=== PATIENT | female | born 1985 | race Caucasian/White ===

== ENCOUNTER 2016-04-21 16:43 | Emergency (ER) | payer MEDICAID, OTHER ==
[~2016-04-21] VITALS: Ht 170.2 cm; Wt 75.3 kg
[~2016-04-21 16:43] MED LIST: AC325T PO; ACHYD1T PO; CPR500T PO; CRS350T PO; CYCL10TA9 PO; DCS100C PO; HYDR-3714 PO; IBP800T PO; IBUP800T26 PO; LANS30CA8 PO; MTF500T PO; MTP25TSR PO; NAPR-243 PO; NF-TRA/ACE PO; NITR-33 PO; NITR-65 PO; ONDA-42 PO; ONDA-42 SL; ONDAN4ODT PO; OXYC-12 PO; OXYC1TAB12 PO; PANT20TA PO; PHEN-452 PO; PHEN200T16 PO; PREN1TAB39; PRENATAL GUMMIES PO; PRM25T PO; TRM50T PO
--- OUTSIDE RECORDS SUMMARY | 2016-04-21 16:49 | XMS REPORT | Continuity of Care Document ---
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 Name Role Phone DYAN CARDOSO MD PCP Insurance Providers Payer Name Policy Number Subscriber Name Relationship Dakot[facility] [employer] [facility] [id number] Isela Boyer I 18 Self / Same As Patient Advance Directives Directive Response Recorded Date/Time Advance Directives No 09/10/14 11:38am Health Care Power of Neurology Director No 09/10/14 11:38am Organ Donor Yes 09/10/14 11:38am Resuscitation Status Full Code 09/10/14 11:38am Problems Medical Problems Problem Onset Date Status Urinary tract infection Unknown Active Medications Medication Dose Route Sig Days/Qty Instructions Order Date Discontinued Date Status Vits W-Ca,Fe,Fa(<1MG) 07/13/08 07/13/09 Discontinued Nitrofurantoin Macrocrystals 1 Each PO TWICE A DAY 7 Days 07/14/1019/02 Discontinued Promethazine HCl 1 Tab PO FOUR TIMES DAILY PRN 14 Qty 07/14/10 Discontinued Vits W-Ca,Fe,Fa(<1MG) 08/21/10 03/21/11 Discontinued Acetaminophen/Hydrocodone Bitart 1 - 2 Tab PO Q3HRS NEEDED 28 Qty 03/21/11 Discontinued Ibuprofen 800 Mg PO Q6HRS NEEDED 01/09/11 12/18/11 Discontinued Acetaminophen 650 Mg PO NEEDED 03/21/11 12/18/11 Discontinued Carisoprodol 1 Tab PO THREE TIMES A DAY 30 Qty 03/21/11 12/18/11 Discontinued Tramadol/Acetaminophen 1 Ea PO NEEDED 20 Qty 03/21/11 12/18/11 Discontinued Promethazine HCl 1 Tab PO FOUR TIMES DAILY PRN 14 Qty 12/18/11 Discontinued Metoprolol Succinate 1 Each PO BEDTIME PRN 06/03/12 08/14/13 Discontinued Tramadol HCl 50 Mg PO EVERY 4HRS 20 Qty 06/03/12 08/14/13 Discontinued Ciprofloxacin 1 Tab PO TWICE A DAY 7 Days 06/03/12 08/14/13 Discontinued Phenazopyridine Hcl 200 Mg PO THREE TIMES A DAY 6 Qty 06/03/12 Discontinued Phentermine Hcl 30 Mg PO 08/14/13 12/27/13 Discontinued Cyclobenzaprine HCl (Flexeril) 1 Each PO EVERY 8HRS PRN SPASMS 10 Qty 08/14/13 09/22/13 Discontinued Hydrocodone Bit/Acetaminophen 1 Tab PO EVERY 4HRS PRN PAIN 10 Qty 08/1409/22/13 Discontinued Nitrofurantoin Macrocrystals 1 Each PO TWICE A DAY 20 Qty FOR INFECTION 08/14/13 09/22/13 Discontinued Oxycodone Hcl/Acetaminophen 1 Each PO Q4-6H PRN PRN PAIN 20 Qty 12/27/13 Discontinued Ondansetron Hcl 4 Mg SL EVERY 4HRS PRN 10 Qty 09/22/13 02/06/14 Discontinued Ibuprofen (Motrin) 800 Mg PO q8h PRN PAIN 20 Qty 09/22/13 12/27/13 Discontinued [ Gummies] 1 Ea PO BEDTIME 12/27/13 08/01/14 Discontinued Nitrofurantoin Macrocrystals 1 Each PO TWICE A DAY 20 Qty 12/27/13 Discontinued Lansoprazole 30 Mg PO DAILY 02/06/14 02/15/14 Discontinued Oxycodone Hcl/Acetaminophen 1-2 Each PO Q4-6H PRN PRN PAIN 30 Qty 02/1208/01/14 Discontinued Pantoprazole Sodium 40 Mg PO DAILY 90 Qty 02/15/14 09/08/14 Discontinued Ondansetron Hcl 4 Mg PO EVERY 4HRS PRN 60 Qty 02/15/14 08/01/14 Discontinued [ Gummies] 2 Ea PO DAILY 08/01/14 09/08/14 Discontinued Metformin HCl (Glucophage) 1 Each PO TWICE A DAY WITH MEALS 08/01/14 08/03/14 Discontinued Docusate Sodium 100 Mg PO TWICE A DAY 60 Qty 08/03/14 09/08/14 Discontinued Ibuprofen 800 Mg PO EVERY 6 HOURS 60 Qty 08/03/14 09/08/14 Discontinued Oxycodone Hcl/Acetaminophen 1-2 Tab PO EVERY 4HRS PRN PAIN 60 Qty 08/0309/08/14 Discontinued Docusate Sodium 100 Mg PO TWICE A DAY 30 Qty 09/11/14 Active Ibuprofen 800 Mg PO GIVE EVERY 6 HR ON SCHEDULE 60 Qty 09/11/14 Active Oxycodone Hcl/Acetaminophen 1-2 Tab PO EVERY 4HRS PRN PAIN 60 Qty 09/11 Active Social History Social History Problem Response Recorded Date/Time Alcohol Use Denies Use 09/10/2014 11:38am Recreational Drug Use No 09/10/2014 11:38am Recent Foreign Travel No 12/27/2013 3:56pm Recent Infectious Disease Exposure No 12/27/2013 3:56pm Sexually Transmitted Disease Y Chlamydia-Treated 09/10/2014 11:38am HIV/AIDS No 09/10/2014 11:38am Smoking Status Former Smoker 09/10/2014 11:34am Do you dip or chew tobacco? No 09/10/2014 11:34am Query Response Start Date Stop Date Smoking Status Former Smoker 03/03/2012 Hospital Discharge Instructions No hospital discharge instructions. Plan of Care No plan of care. Functional Status No functional status results. Allergies, Adverse Reactions, Alerts Allergen Type Severity Reaction Status Last Updated Codeine Allergy Unknown NAUSEA Active 09/22/13 hydrocodone ([id number]) Adverse Reaction Intermediate vomiting Active Immunizations Name Given Type Tetanus Booster (TDap) Less than 5yrs Historical Vital Signs Acute Vital Signs Vital Response Date/Time Temperature (Fahrenheit) 98.4 degrees F (97.6 - 99.5) Temperature (Calculated Celsius) 36.87105 degrees C (36.4 - 37.5) Temperature Source Temporal Pulse Rate (adult) 70 bpm (60 - 90) Respiratory Rate 17 bpm (12 - 24) O2 Sat by Pulse Oximetry 96 % (88 - 100) Blood Pressure 97/50 mm Hg Pain Pain Intensity 0 Height (Feet) 5 feet Height (Inches) 7.00 inches Height (Calculated Centimeters) 170.582537 cm Weight (Pounds) 222 pounds Weight (Ounces) 0.0 oz Weight (Calculated Grams) 905488.507 gm Weight (Calculated Kilograms) 100.445284 kilograms Calculated BMI 36.94 Results Laboratory Results Test Name Result Units Flags Reference Collection Date/Time Result Date/ Time Comments White Blood Count 6.9 10^3/uL 4.3-11.0 09/08/2014 12:00pm 09/08/2014 12 :29pm Red Blood Count 4.67 10^6/uL 4.35-5.85 09/08/2014 12:00pm 09/08/2014 12 :29pm Hemoglobin 11.1 G/DL L 11.5-16.0 09/08/2014 12:00pm 09/08/2014 12:29pm Hematocrit 35 % 35-52 09/08/2014 12:00pm 09/08/2014 12:29pm Mean Corpuscular Volume 75 FL L 80-99 09/08/2014 12:00pm 09/08/2014 12: 29pm Mean Corpuscular Hemoglobin 24 PG L 25-34 09/08/2014 12:00pm 09/08/2014 12:29pm Mean Corpuscular Hemoglobin Concent 32 G/DL 32-36 09/08/2014 12:00pm 12:29pm Red Cell Distribution Width 17.2 % H 10.0-14.5 09/08/2014 12:00pm 2014 12:29pm Platelet Count 315 10^3/uL 130-400 09/08/2014 12:00pm 09/08/2014 12: 29pm Mean Platelet Volume 10.5 FL H 7.4-10.4 09/08/2014 12:00pm 09/08/2014 12: 29pm Neutrophils (%) (Auto) 65 % 42-75 09/08/2014 12:00pm 09/08/2014 12: 29pm Lymphocytes (%) (Auto) 26 % 12-44 09/08/2014 12:00pm 09/08/2014 12: 29pm Monocytes (%) (Auto) 5 % 0-12 09/08/2014 12:00pm 09/08/2014 12:29pm Eosinophils (%) (Auto) 4 % 0-10 09/08/2014 12:00pm 09/08/2014 12:29pm Basophils (%) (Auto) 0 % 0-10 09/08/2014 12:00pm 09/08/2014 12:29pm Neutrophils # (Auto) 4.5 X 10^3 1.8-7.8 09/08/2014 12:00pm 09/08/2014 12:29pm Lymphocytes # (Auto) 1.8 X 10^3 1.0-4.0 09/08/2014 12:00pm 09/08/2014 12:29pm Monocytes # (Auto) 0.4 X 10^3 0.0-1.0 09/08/2014 12:00pm 09/08/2014 12: 29pm Eosinophils # (Auto) 0.3 10^3/uL 0.0-0.3 09/08/2014 12:00pm 09/08/2014 12:29pm Basophils # (Auto) 0.0 10^3/uL 0.0-0.1 09/08/2014 12:00pm 09/08/2014 12 :29pm Procedures Procedure Status Date Provider(s) Robot-assisted laparoscopic hysterectomy completed 09/10/14 DYAN CARDOSO MD Encounters Encounter Location Date/Time Departed [facility] 09/10/14 10:50am Registered Clinic [facility] 09/08/14 11:48am
[2016-04-21 17:13] LABS: BASOPHILS % (AUTO) 0 % (0-10); EOSINOPHILS # (AUTO) 0.2 10^3/uL (0.0-0.3); EOSINOPHILS % (AUTO) 2 % (0-10); LYMPHOCYTES % (AUTO) 24 % (12-44); MEAN CORPUSCULAR HEMOGLOBIN 29 PG (25-34); MEAN CORPUSCULAR HGB CONC 35 G/DL (32-36); MEAN CORPUSCULAR VOLUME 85 FL (80-99); MEAN PLATELET VOLUME 10.6 FL (7.4-10.4); MONOCYTES # (AUTO) 0.4 X 10^3 (0.0-1.0); MONOCYTES % (AUTO) 4 % (0-12); NEUTROPHILS # (AUTO) 5.6 X 10^3 (1.8-7.8); NEUTROPHILS % (AUTO) 69 % (42-75); PLATELET COUNT 275 10^3/uL (130-400); RED BLOOD COUNT 5.48 10^6/uL (4.35-5.85); RED CELL DISTRIBUTION WIDTH 13.8 % (10.0-14.5); WHITE BLOOD COUNT 8.1 10^3/uL (4.3-11.0)
--- NOTE | 2016-04-21 17:27 | Diagnostic Imaging Report ---
INDICATION: Chest pain. COMPARISON: 05/17/2010. FINDINGS: Single frontal view of the chest demonstrates normal heart size and pulmonary vascularity. The lungs are well aerated and clear. No large pleural effusion or pneumothorax is seen. The visualized osseous structures show no acute abnormalities. IMPRESSION: 1. No acute cardiopulmonary process. Dictated by: Dictated on workstation # [id number]
[2016-04-21 17:34] LABS: ALANINE AMINOTRANSFERASE 26 U/L (0-55); ALBUMIN 4.8 G/DL (3.2-4.5); ANION GAP 9 MMOL/L (5-14); ASPARTATE AMINO TRANSFERASE 21 U/L (5-34); BILIRUBIN,TOTAL 0.5 MG/DL (0.1-1.0); BLOOD UREA NITROGEN 7 MG/DL (7-18); BUN/CREATININE RATIO 8; CALCIUM 9.3 MG/DL (8.5-10.1); CARBON DIOXIDE 24 MMOL/L (21-32); CHLORIDE 104 MMOL/L (98-107); CREATININE SERUM 0.87 MG/DL (0.60-1.30); GFR ESTIMATED > 60; GLUCOSE 78 MG/DL (70-105); POTASSIUM 3.7 MMOL/L (3.6-5.0); SODIUM 137 MMOL/L (135-145); TOTAL PROTEIN 7.6 G/DL (6.4-8.2)
--- NOTE | 2016-04-21 17:38 | ED Chest Pain ---
General Chief Complaint: Chest Pain Stated Complaint: CHEST PAIN Nursing Triage Note: PT STATES HX OF A-FIB, CC TODAY OF CHEST PAIN, HAS BEEN HAVING CHEST PAIN FOR THE PAST 2 WEEKS, 4 EPISODES TODAY. PT'S SKIN IS FLUSHED FROM SUN TANNING. Nursing Sepsis Screen: No Definite Risk Source: patient Exam Limitations: no limitations History of Present Illness Time seen by provider: 17:38 Timing/Duration: other (2 weeks) Severity/Quality: moderate, sharp, other Location: substernal, epigastric Radiation: no radiation Activities at Onset: none Prior CP/Workup: other Associated Symptoms: denies symptoms Allergies and Home Medications Allergies Coded Allergies: codeine (Unverified Allergy, Unknown, NAUSEA, 09/22/13) hydrocodone (Unverified Adverse Reaction, Intermediate, vomiting, 09/22/13) Review of Systems Constitutional: see HPI EENTM: No Symptoms Reported Respiratory: No Symptoms Reported Cardiovascular: See HPI Chest Pain Irregular Heart Rate Palpitations Gastrointestinal: No Symptoms Reported Genitourinary: No Symptoms Reported Musculoskeletal: no symptoms reported Skin: other (sunburn) Psychiatric/Neurological: No Symptoms Reported Endocrine: No Symptoms Reported Hematologic/Lymphatic: No Symptoms Reported Past [id number]-Tiddvb-Wunoav Hx Patient Social History Alcohol Use: Occasionally Uses Recreational Drug Use: No Smoking Status: Current Everyday Smoker Type Used: Cigarettes Former Smoker/When Quit: Mar 03, 2012 Recent Foreign Travel: No Contact w/Someone Who Travel: No Recent Infectious Disease Expo: No Recent Hopitalizations: No (2006 CHILDBIRTH) Physical Abuse Screen: No Sexual Abuse: No Immunizations Up To Date Tetanus Booster (TDap): Less than 5yrs Seasonal Allergies Seasonal Allergies: No Surgeries HX Surgeries: Yes Surgeries: Gallbladder, Hysterectomy, Tonsillectomy Respiratory Hx Respiratory Disorders: No Cardiovascular Hx Cardiac Disorders: Yes Cardiac Disorders: Atrial Fibrillation Neurological Hx Neurological Disorders: No Reproductive System : No Hx Reproductive Disorders: Yes (DOTTIE III) Sexually Transmitted Disease: Yes (Chlamydia-Treated) HIV/AIDS: No 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 Genitourinary Hx Genitourinary Disorders: No Gastrointestinal Hx Gastrointestinal Disorders: No Gastrointestinal Disorders: Gall Bladder Disease Musculoskeletal Hx Musculoskeletal Disorders: No Endocrine Hx Endocrine Disorders: No HEENT HX ENT Disorders: No Loss of Vision: Denies Hearing Impairment: Denies Cancer Hx Cancer: No Psychosocial Hx Psychiatric Problems: No Integumentary HX Skin/Integumentary Disorder: No Blood Transfusions Hx Blood Disorders: No Adverse Reaction to a Blood Tr: No Family Medical History Significant Family History: No Pertinent Family Hx Family Medial History: Cardiovascular disease 19 FATHER Diabetes mellitus Grandparents (Maternal Grandmother) Fibrocystic disease of breast Grandparents (Maternal Grandmother) Hypertension Grandparents (Maternal Grandfather) Neoplasm Grandparents (Maternal Grandmother) Physical Exam Vital Signs Vital Sign - Last 12Hours 04/21/16 16:49 Temp 100.6 Pulse 69 Resp 20 B/P 140/103 Pulse Ox 100 O2 Delivery Room Air Capillary Refill : Less Than 3 Seconds General Appearance: Anxious HEENT: Normal ENT Inspection Neck: Full Range of Motion Normal Inspection Non Tender Respiratory: Chest Non Tender Lungs Clear Normal Breath Sounds No Accessory Muscle Use No Respiratory Distress Cardiovascular: Regular Rate, Rhythm No Edema No Gallop No JVD No Murmur Normal Peripheral Pulses Gastrointestinal: Normal Bowel Sounds No Organomegaly No Pulsatile Mass Non Tender Genital/Rectal: Normal Rectal Tone Extremity: Normal Capillary Refill Neurologic/Psychiatric: Alert Oriented x3 No Motor/Sensory Deficits Normal Mood/Affect Skin: Normal Color Warm/Dry Lymphatic: No Adenopathy Progress/Results/Core Measures Results/Orders Lab Results Laboratory Tests Test 04/21/16 17:00 Range/Units Alanine Aminotransferase (ALT/SGPT) 26 0-55 U/L Albumin 4.8 H 3.2-4.5 G/DL Alkaline Phosphatase 64 40-136 U/L Anion Gap 9 5-14 MMOL/L Aspartate Amino Transf (AST/SGOT) 21 5-34 U/L BUN/Creatinine Ratio 8 Basophils # (Auto) 0.0 0.0-0.1 10^3/uL Basophils (%) (Auto) 0 0-10 % Blood Urea Nitrogen 7 7-18 MG/DL Calcium Level 9.3 8.5-10.1 MG/DL Carbon Dioxide Level 24 21-32 MMOL/L Chloride Level 104 98-107 MMOL/L Creatinine 0.87 0.60-1.30 MG/DL Eosinophils # (Auto) 0.2 0.0-0.3 10^3/uL Eosinophils (%) (Auto) 2 0-10 % Estimat Glomerular Filtration Rate > 60 Glucose Level 78 70-105 MG/DL Hematocrit 47 35-52 % Hemoglobin 16.1 H 11.5-16.0 G/DL Lymphocytes # (Auto) 2.0 1.0-4.0 X 10^3 Lymphocytes (%) (Auto) 24 12-44 % Mean Corpuscular Hemoglobin 29 25-34 PG Mean Corpuscular Hemoglobin Concent 35 32-36 G/DL Mean Corpuscular Volume 85 80-99 FL Mean Platelet Volume 10.6 H 7.4-10.4 FL Monocytes # (Auto) 0.4 0.0-1.0 X 10^3 Monocytes (%) (Auto) 4 0-12 % Neutrophils # (Auto) 5.6 1.8-7.8 X 10^3 Neutrophils (%) (Auto) 69 42-75 % Platelet Count 275 130-400 10^3/uL Potassium Level 3.7 3.6-5.0 MMOL/L Red Blood Count 5.48 4.35-5.85 10^6/uL Red Cell Distribution Width 13.8 10.0-14.5 % Sodium Level 137 135-145 MMOL/L Total Bilirubin 0.5 0.1-1.0 MG/DL Total Protein 7.6 6.4-8.2 G/DL Troponin I < 0.30 <0.30 NG/ML White Blood Count 8.1 4.3-11.0 10^3/uL My Orders Orders-ABELINO YOON MD Ekg Tracing (04/21/16 17:04) Chest 1 View, Ap/Pa Only (04/21/16 17:04) Cbc With Automated Diff (04/21/16 17:04) Comprehensive Metabolic Panel (04/21/16 17:04) Troponin I (04/21/16 17:04) Vital Signs/I&O Vital Sign - Last 12Hours 04/21/16 04/21/16 16:49 17:00 Temp 100.6 Pulse 69 Resp 20 B/P 140/103 Pulse Ox 100 O2 Delivery Room Air Room Air Blood Pressure Mean: 115 Departure Communication Progress Notes The electrocardiogram is normal. A previous cardiogram from 2013 showed a ventricular bigeminy. Troponin was negative Impression Impression: Primary Impression: chest pain not ischemic Disposition: HOME, SELF-CARE Condition: Stable/Unchanged Departure-Patient Inst. Decision time for Depature: 17:55 Referrals: DYAN CARDOSO MD (PCP/Family) Primary Care Physician Patient Instructions: Chest Pain That Is Not Caused by the Heart (DC) Add. Discharge Instructions: All discharge instructions reviewed with patient and/or family. Voiced understanding. Make appointment to revisit cardiology for further advice ABELINO YOON MD Apr 21, 2016 17:38
[2016-04-21 17:40] LABS: TROPONIN I < 0.30 NG/ML (<0.30)
[2016-04-21 18:13] VITALS: BP 118/85
== END 2016-04-21 18:13 | disposition home or self-care (01) ==
LOC: EDUNIT# 16:43 → ER 16:45
DX: R07.89 Other chest pain (principal); F17.210 Nicotine dependence, cigarettes, uncomplicated
CPT/HCPCS: 36415; 71010; 80053; 84484; 85025; 93005

== ENCOUNTER 2017-07-04 20:57 | Emergency (ER) | payer MEDICAID, OTHER ==
[~2017-07-04] VITALS: Ht 172.7 cm; Wt 74.8 kg
[2017-07-04] MEDS ORDERED: KETOROLAC 30 MG/ML VIAL IM ONE (21:30)
--- NOTE | 2017-07-04 21:30 | ED Lower Extremity ---
General Chief Complaint: Back Problems Stated Complaint: BACK AND LEG PAIN Nursing Triage Note: PT TO ED 4 W/ S.O. 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 PT REPORTS WAS RUNNING UPON ONSET. REPORTS PAIN RADIATES DOWN BOTH LEGS, UNABLE TO FIND POSITION OF COMFORT Nursing Sepsis Screen: No Definite Risk Source: patient Exam Limitations: no limitations History of Present Illness Date Seen by Provider: Jul 04, 2017 Time Seen by Provider: 21:12 Initial Comments Patient resists ER by private conveyance with her significant other a chief complaint she was at [place] softball game [place] [employer] just prior to arrival when she took off spreading from [employer] [place] and started experiencing exquisite pain in the anterior thighs. She says she's never had any previous injury she has no history of trauma to her thighs. No history of surgery. She did not fall. She is not on any medications or control. She had a history of a gallbladder, hysterectomy, tonsillectomy. She has not taken anything for it because she came straight here. She is not having any nausea, fevers, chills. Allergies and Home Medications Allergies Coded Allergies: codeine (Unverified Allergy, Unknown, NAUSEA, 09/22/13) hydrocodone (Unverified Adverse Reaction, Intermediate, vomiting, 09/22/13) Patient Home Medication List Home Medication List Reviewed: Yes Constitutional: No chills, No fever, No malaise EENTM: No ear discharge, No ear pain Respiratory: No cough, No short of breath Cardiovascular: No chest pain, No syncope Gastrointestinal: No abdominal pain, No constipation, No nausea, No vomiting Genitourinary: No discharge, No dysuria : No Control/STD Prophylaxis: Other (hysterectomy) Musculoskeletal: see HPI, No back pain, No joint pain Past Jxuqfxo-Ubsdyb-Pbjgny Hx Patient Social History Alcohol Use: Denies Use Number of Drinks Today: AA Alcohol Beverage of Choice: Beer Recreational Drug Use: No Smoking Status: Current Everyday Smoker Type Used: Cigarettes Recent Foreign Travel: No Contact w/Someone Who Travel: No Recent Infectious Disease Expo: No Recent Hopitalizations: No (2005 CHILDBIRTH) Physical Abuse: No Sexual Abuse: No Mistreated: No Fear: No Immunizations Up To Date Tetanus Booster (TDap): Less than 5yrs Seasonal Allergies Seasonal Allergies: No Past Medical History Surgeries: Yes (D AND C 2007) Gallbladder, Hysterectomy, Tonsillectomy Respiratory: No Cardiac: Yes Atrial Fibrillation Neurological: No Reproductive Disorders: Yes (DOTTIE III) Female Reproductive Disorders: 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 Sexually Transmitted Disease: Yes (Chlamydia-Treated) HIV/AIDS: No Gastrointestinal: No Gall Bladder Disease Musculoskeletal: No Endocrine: No Loss of Vision: Denies Hearing Impairment: Denies Cancer: No Psychosocial: No Nursing Suicide Risk Score: 0 Integumentary: No Blood Disorders: No Adverse Reaction/Blood Tranf: No Family Medical History Cardiovascular disease 19 FATHER Diabetes mellitus Grandparents (Maternal Grandmother) Fibrocystic disease of breast Grandparents (Maternal Grandmother) Hypertension Grandparents (Maternal Grandfather) Neoplasm Grandparents (Maternal Grandmother) No Pertinent Family Hx Physical Exam Vital Signs Vital Signs - First Documented 07/04/17 21:06 Temp 98.1 Pulse 102 Resp 24 B/P (MAP) 126/89 (101) Pulse Ox 99 O2 Delivery Room Air Capillary Refill : Less Than 3 Seconds General Appearance: WD/WN, mild distress HEENT: PERRL/EOMI, pharynx normal Neck: non-tender, normal inspection Cardiovascular: normal peripheral pulses, regular rate, rhythm Respiratory: chest non-tender, no respiratory distress, no accessory muscle use Gastrointestinal: normal bowel sounds, non tender, soft, no organomegaly Back: normal inspection, vertebral tenderness (lumbar with point tenderness over the right L5-S1 facet joint.) Hips: bilateral hip non-tender, bilateral hip normal inspection, bilateral hip normal range of motion, bilateral hip no evidence of injury Legs: bilateral leg normal inspection, bilateral leg normal range of motion, bilateral leg pain, bilateral leg soft tissue tenderness Knees: bilateral knee non-tender, bilateral knee normal inspection, bilateral knee normal range of motion, bilateral knee no evidence of injury Ankles: bilateral ankle non-tender, bilateral ankle normal inspection, bilateral ankle normal range of motion, bilateral ankle no evidence of injury Feet: bilateral foot non-tender, bilateral foot normal inspection, bilateral foot normal range of motion, bilateral foot no evidence of injury Neurologic/Tendon: normal sensation, normal motor functions, normal tendon functions, responds to pain, no evidence tendon injury Neurologic/Psychiatric: alert, normal mood/affect, oriented x 3 Skin: normal color, warm/dry Progress/Results/Core Measures Lab Results Laboratory Tests Test 07/04/17 22:02 07/04/17 22:27 Range/Units White Blood Count 9.5 4.3-11.0 10^3/uL Red Blood Count 4.85 4.35-5.85 10^6/uL Hemoglobin 14.5 11.5-16.0 G/DL Hematocrit 43 35-52 % Mean Corpuscular Volume 88 80-99 FL Mean Corpuscular Hemoglobin 30 25-34 PG Mean Corpuscular Hemoglobin Concent 34 32-36 G/DL Red Cell Distribution Width 12.7 10.0-14.5 % Platelet Count 252 130-400 10^3/uL Mean Platelet Volume 10.1 7.4-10.4 FL Neutrophils (%) (Auto) 66 42-75 % Lymphocytes (%) (Auto) 25 12-44 % Monocytes (%) (Auto) 5 0-12 % Eosinophils (%) (Auto) 3 0-10 % Basophils (%) (Auto) 0 0-10 % Neutrophils # (Auto) 6.3 1.8-7.8 X 10^3 Lymphocytes # (Auto) 2.3 1.0-4.0 X 10^3 Monocytes # (Auto) 0.5 0.0-1.0 X 10^3 Eosinophils # (Auto) 0.3 0.0-0.3 10^3/uL Basophils # (Auto) 0.0 0.0-0.1 10^3/uL Sodium Level 141 135-145 MMOL/L Potassium Level 4.0 3.6-5.0 MMOL/L Chloride Level 105 98-107 MMOL/L Carbon Dioxide Level 26 21-32 MMOL/L Anion Gap 10 5-14 MMOL/L Blood Urea Nitrogen 14 7-18 MG/DL Creatinine 0.76 0.60-1.30 MG/DL Estimat Glomerular Filtration Rate > 60 BUN/Creatinine Ratio 18 Glucose Level 93 70-105 MG/DL Calcium Level 9.3 8.5-10.1 MG/DL Total Bilirubin 0.3 0.1-1.0 MG/DL Aspartate Amino Transf (AST/SGOT) 22 5-34 U/L Alanine Aminotransferase (ALT/SGPT) 14 0-55 U/L Alkaline Phosphatase 51 40-136 U/L Total Creatine Kinase 295 H 29-168 U/L Total Protein 7.1 6.4-8.2 GM/DL Albumin 4.5 3.2-4.5 GM/DL Urine Color YELLOW Urine Clarity CLEAR Urine pH 6 5-9 Urine Specific Benedict 1.025 H 1.016-1.022 Urine Protein NEGATIVE NEGATIVE Urine Glucose (UA) NEGATIVE NEGATIVE Urine Ketones NEGATIVE NEGATIVE Urine Nitrite NEGATIVE NEGATIVE Urine Bilirubin NEGATIVE NEGATIVE Urine Urobilinogen NORMAL NORMAL MG/DL Urine Leukocyte Esterase 1+ H NEGATIVE Urine RBC (Auto) NEGATIVE NEGATIVE Urine RBC NONE /HPF Urine WBC RARE /HPF Urine Squamous Epithelial Cells 5-10 /HPF Urine Crystals NONE /LPF Urine Bacteria TRACE /HPF Urine Casts NONE /LPF Urine Mucus NEGATIVE /LPF Urine Culture Indicated NO My Orders Orders - TERRIE NATARAJAN Ketorolac Injection (Toradol Injection) (07/04/17 21:30) Cbc With Automated Diff (07/04/17 21:36) Comprehensive Metabolic Panel (07/04/17 21:36) Creatine Kinase (07/04/17 21:36) Ua Culture If Indicated (07/04/17 21:36) Medications Given in ED Current Medications Medications Dose Ordered Sig/Laisha Route Start Time Stop Time Status Last Admin Dose Admin Ketorolac Tromethamine 30 mg ONCE ONCE IM 07/04/17 21:30 07/04/17 21:31 DC 07/04/17 21:31 30 MG Vital Signs/I&O 07/04/17 21:06 Temp 98.1 Pulse 102 Resp 24 B/P (MAP) 126/89 (101) Pulse Ox 99 O2 Delivery Room Air Blood Pressure Mean: 101 Progress Note #1: Time: 21:33 Progress Note CPK, CBC, CMP, Toradol. Pain seems to be more musculoskeletal than it does have anything to do with neurologic. No acute event for her back that would require imaging right now. No red flag signs. Progress Note #2: Time: 22:51 Progress Note Creatinine kinase is elevated as will be seen in an athlete whose recently performed however it is not above the threshold 1500 typically seen and rhabdomyolysis. She's 89 medications and would contribute to rhabdomyolysis. This is likely just a sports injury and it has responded very well to the ketorolac. Her pain is very tolerable now she is able to move around without as much discomfort. Departure Impression Primary Impression: Back strain Qualified Codes: S39.012A - Strain of muscle, fascia and tendon of lower back , initial encounter Additional Impression: Quadriceps strain Qualified Codes: S76.119A - Strain of unspecified quadriceps muscle, fascia and tendon, initial encounter Disposition: 01 HOME, SELF-CARE Condition: Improved Departure-Patient Inst. Decision time for Depature: 22:53 Referrals: NO,LOCAL PHYSICIAN (PCP) Primary Care Physician Patient Instructions: Low Back Pain (DC) Add. Discharge Instructions: For the next 2-4 weeks you should take Naprosyn 2 capsules twice a day routinely or if you prefer you can use 800 mg of ibuprofen every 8 hours, 3 times a day. In addition to this you can use 1000 g of Tylenol every 8 hours, creams such as icy hot and heating pads. For the first 2-3 days you can apply ice over your aching muscles and back for 20 minutes on every 2-4 hours as needed for swelling or pain. Continue to stretch out and move around and if your pain persists beyond about 2-4 weeks you should consider following up with a primary care provider in order to consider physical therapy evaluation. If you 're having muscle spasms you can also take one tablet of the cyclobenzaprine, Flexeril every 8 hours as needed. All discharge instructions reviewed with patient and/or family. Voiced understanding. Scripts Cyclobenzaprine HCl (Cyclobenzaprine HCl) 10 Mg Tablet 10 MG PO Q8H Y for SPASMS, #15 TAB 0 Refills Prov: TERRIE NATARAJAN 07/04/17 Copy Copies To 1: CAT TOBAR DO TERRIE NATARAJAN Jul 04, 2017 21:30
[2017-07-04 22:10] LABS: BASOPHILS % (AUTO) 0 % (0-10); EOSINOPHILS # (AUTO) 0.3 10^3/uL (0.0-0.3); EOSINOPHILS % (AUTO) 3 % (0-10); HEMATOCRIT 43 % (35-52); HEMOGLOBIN 14.5 G/DL (11.5-16.0); LYMPHOCYTES # (AUTO) 2.3 X 10^3 (1.0-4.0); LYMPHOCYTES % (AUTO) 25 % (12-44); MEAN CORPUSCULAR HEMOGLOBIN 30 PG (25-34); MEAN CORPUSCULAR HGB CONC 34 G/DL (32-36); MEAN CORPUSCULAR VOLUME 88 FL (80-99); MEAN PLATELET VOLUME 10.1 FL (7.4-10.4); MONOCYTES # (AUTO) 0.5 X 10^3 (0.0-1.0); MONOCYTES % (AUTO) 5 % (0-12); NEUTROPHILS # (AUTO) 6.3 X 10^3 (1.8-7.8); NEUTROPHILS % (AUTO) 66 % (42-75); PLATELET COUNT 252 10^3/uL (130-400); RED BLOOD COUNT 4.85 10^6/uL (4.35-5.85); RED CELL DISTRIBUTION WIDTH 12.7 % (10.0-14.5); WHITE BLOOD COUNT 9.5 10^3/uL (4.3-11.0)
[2017-07-04 22:34] LABS: BILIRUBIN,URINE NEGATIVE (NEGATIVE); CLARITY,URINE CLEAR; COLOR,URINE YELLOW; GLUCOSE, URINE (UA) NEGATIVE (NEGATIVE); KETONES,URINE NEGATIVE (NEGATIVE); LEUKOCYTE ESTERASE ,URINE 1+ (NEGATIVE); NITRITE,URINE NEGATIVE (NEGATIVE); PH,URINE 6 (5-9); PROTEIN,URINE NEGATIVE (NEGATIVE); UROBILINOGEN,URINE NORMAL (NORMAL)
[2017-07-04 22:40] LABS: ALANINE AMINOTRANSFERASE 14 U/L (0-55); ALBUMIN 4.5 GM/DL (3.2-4.5); ALKALINE PHOSPHATASE 51 U/L (40-136); BILIRUBIN,TOTAL 0.3 MG/DL (0.1-1.0); BUN/CREATININE RATIO 18; CALCIUM 9.3 MG/DL (8.5-10.1); CARBON DIOXIDE 26 MMOL/L (21-32); CHLORIDE 105 MMOL/L (98-107); CREATINE KINASE 295 U/L (29-168); CREATININE SERUM 0.76 MG/DL (0.60-1.30); GFR ESTIMATED > 60; GLUCOSE 93 MG/DL (70-105); SODIUM 141 MMOL/L (135-145); TOTAL PROTEIN 7.1 GM/DL (6.4-8.2)
[2017-07-04 22:43] LABS: BACTERIA,URINE TRACE /HPF; WBC,URINE RARE /HPF
[2017-07-04] MEDS ORDERED: CYCL10TA9 PO ×2 (22:55→23:02)
[2017-07-04] MEDS ORDERED: PRD20T PO (23:02)
[2017-07-04] MEDS ORDERED: ORPHENADRINE 60 MG/2 ML (NORFLEX) AMP IM ONE (23:15)
[2017-07-04 23:22] VITALS: BP 113/68
== END 2017-07-04 23:24 | disposition home or self-care (01) ==
LOC: EDUNIT# 20:57 → ER 20:59
DX: S39.012A Strain of muscle, fascia and tendon of lower back, initial encounter (principal); S76.111A Strain of right quadriceps muscle, fascia and tendon, initial encounter; S76.112A Strain of left quadriceps muscle, fascia and tendon, initial encounter; I48.91 Unspecified atrial fibrillation; F17.210 Nicotine dependence, cigarettes, uncomplicated; Z87.19 Personal history of other diseases of the digestive system; Z90.710 Acquired absence of both cervix and uterus; Z90.89 Acquired absence of other organs; Z88.5 Allergy status to narcotic agent; X58.XXXA Exposure to other specified factors, initial encounter; Y93.64 Activity, baseball
CPT/HCPCS: 36415; 80053; 81000; 82550; 85025; 96372; 99284

== ENCOUNTER 2019-09-03 08:57 | Outpatient (RCR) | payer OTHER ==
[2019-08-01 13:36] LABS: BASOPHILS % (AUTO) 1 % (0-10); EOSINOPHILS # (AUTO) 0.1 10^3/uL (0.0-0.3); EOSINOPHILS % (AUTO) 3 % (0-10); HEMATOCRIT 42 % (35-52); LYMPHOCYTES # (AUTO) 1.1 X 10^3 (1.0-4.0); LYMPHOCYTES % (AUTO) 25 % (12-44); MEAN CORPUSCULAR HEMOGLOBIN 29 PG (25-34); MEAN CORPUSCULAR HGB CONC 34 G/DL (32-36); MEAN CORPUSCULAR VOLUME 86 FL (80-99); MEAN PLATELET VOLUME 11.7 FL (7.4-10.4); MONOCYTES # (AUTO) 0.2 X 10^3 (0.0-1.0); MONOCYTES % (AUTO) 5 % (0-12); NEUTROPHILS # (AUTO) 2.9 X 10^3 (1.8-7.8); NEUTROPHILS % (AUTO) 67 % (42-75); PLATELET COUNT 116 10^3/uL (130-400); WHITE BLOOD COUNT 4.3 10^3/uL (4.3-11.0)
[2019-08-01 13:59] LABS: ALANINE AMINOTRANSFERASE 9 U/L (0-55); ALBUMIN 4.4 GM/DL (3.2-4.5); ALKALINE PHOSPHATASE 45 U/L (40-136); BILIRUBIN,TOTAL 0.7 MG/DL (0.1-1.0); BUN/CREATININE RATIO 7; CALCIUM 9.1 MG/DL (8.5-10.1); CARBON DIOXIDE 26 MMOL/L (21-32); CHLORIDE 102 MMOL/L (98-107); CREATININE SERUM 0.84 MG/DL (0.60-1.30); GFR ESTIMATED > 60; GLUCOSE 87 MG/DL (70-105); POTASSIUM 3.9 MMOL/L (3.6-5.0); SODIUM 137 MMOL/L (135-145); TOTAL PROTEIN 7.2 GM/DL (6.4-8.2)
[~2019-09-03 08:57] MED LIST changes: +PRD20T PO
[2019-09-03 09:08] LABS: BASOPHILS % (AUTO) 0 % (0-10); EOSINOPHILS # (AUTO) 0.2 10^3/uL (0.0-0.3); EOSINOPHILS % (AUTO) 3 % (0-10); HEMATOCRIT 40 % (35-52); HEMOGLOBIN 13.7 G/DL (11.5-16.0); LYMPHOCYTES # (AUTO) 1.6 X 10^3 (1.0-4.0); LYMPHOCYTES % (AUTO) 29 % (12-44); MEAN CORPUSCULAR HEMOGLOBIN 30 PG (25-34); MEAN CORPUSCULAR HGB CONC 34 G/DL (32-36); MEAN CORPUSCULAR VOLUME 87 FL (80-99); MEAN PLATELET VOLUME 11.1 FL (7.4-10.4); MONOCYTES # (AUTO) 0.3 X 10^3 (0.0-1.0); MONOCYTES % (AUTO) 5 % (0-12); NEUTROPHILS # (AUTO) 3.5 X 10^3 (1.8-7.8); NEUTROPHILS % (AUTO) 63 % (42-75); PLATELET COUNT 124 10^3/uL (130-400); RED CELL DISTRIBUTION WIDTH 12.6 % (10.0-14.5); WHITE BLOOD COUNT 5.6 10^3/uL (4.3-11.0)
== END 2019-10-30 | disposition home or self-care (01) ==
LOC: ONC 08:57
PROVIDERS: ATTEND Internal Medicine Hematology & Oncology
DX: D69.49 Other primary thrombocytopenia (principal); L81.9 Disorder of pigmentation, unspecified; R00.2 Palpitations
CPT/HCPCS: 80053; 85025; 86038; 86141; G0463; 99213; 99214

== ENCOUNTER 2021-01-25 16:58 | Emergency (ER) | payer SELFPAY ==
[~2021-01-25] VITALS: Ht 170 cm; Wt 77.0 kg
[2021-01-25] MEDS ORDERED: LACTATED RINGERS 1,000 ML IV ONE (17:30)
[2021-01-25] MEDS ORDERED: KETOROLAC 30 MG/ML VIAL IVP STA (17:30)
[2021-01-25] MEDS ORDERED: ONDANSETRON 4 MG/2 ML (SDV) Z0FRAN IVP ONE (17:30)
[2021-01-25] MEDS ORDERED: fentaNYL INJ 100 MCG/2 ML AMP IVP STA (17:30)
--- NOTE | 2021-01-25 17:35 | ED Abdominal Pain ---
General Chief Complaint: Abdominal/GI Problems Stated Complaint: LLQ PAIN Nursing Triage Note: ARRIVED VIA AMB TO ROOM 06 ET STATES SHE WAS SENT HERE FOR A ULTRASOUND. COMPLAINS OF SEVERE LEFT LOWER ABD PAIN STARTING THIS AM. Source of Information: Patient Exam Limitations: No Limitations (ISAÍAS APODACA MD) History of Present Illness Date Seen by Provider: Jan 25, 2021 Time Seen by Provider: 05:25 Initial Comments Here with acute onset of left lower quadrant abdominal pain that started abruptly this morning. She has never had pain like this before. Denies injury. Denies vaginal bleeding or discharge. She has had hysterectomy but not oophorectomy. Denies blood in her stool or urine. Denies diarrhea or fever. States pain is causing nausea. She is seen at [facility] here for possible ultrasound or further evaluation. Timing/Duration: 12 Hours Severity/Quality: Moderate, Severe, Sharp, Stabbing Location: LLQ, Suprapubic (Left-sided) Radiation: No Radiation Activities at Onset: None Modifying Factors: Worsens With Palpation Associated Symptoms: No Back Pain, No Chest Pain, No Fever/Chills, No Swelling/Mass in Abdomen (ISAÍAS APODACA MD) Allergies and Home Medications Allergies Coded Allergies: codeine (Unverified Allergy, Unknown, NAUSEA, 09/22/13) hydrocodone (Unverified Adverse Reaction, Intermediate, vomiting, 09/22/13) Patient Home Medication List Home Medication List Reviewed: Yes (ISAÍAS APODACA MD) Discontinued Medications Cyclobenzaprine HCl (Cyclobenzaprine HCl) 10 Mg Tablet, 10 MG PO Q8H PRN for SPASMS Discontinued Reason: No Longer Taking Prescribed by: TERRIE NATARAJAN on 07/04/172301 Last Action: Discontinued Prednisone (Prednisone) 20 Mg Tab, 40 MG PO DAILY Discontinued Reason: No Longer Taking Prescribed by: TERRIE NATARAJAN on 07/04/172301 Last Action: Discontinued Review of Systems Review of Systems Constitutional: see HPI; No chills, No fever EENTM: No Symptoms Reported Respiratory: Denies Cough, Denies Shortness of Air Cardiovascular: No Symptoms Reported Gastrointestinal: Abdominal Pain; Denies Diarrhea; Nausea; Denies Vomiting Genitourinary: Flank Pain; Denies Hematuria Musculoskeletal: no symptoms reported Skin: no symptoms reported Psychiatric/Neurological: No Symptoms Reported (ISAÍAS APODACA MD) All Other Systems Reviewed Negative Unless Noted: Yes (ISAÍAS APODACA MD) Past Wqslrpf-Rxgqlp-Bkrstq Hx Patient Social History Tobacco Use?: No Smoking Status: Never a Smoker Substance use?: No Alcohol Use?: No (ISAÍAS APODACA MD) Immunizations Up To Date Tetanus Booster (TDap): Less than 5yrs (ISAÍAS APODACA MD) Seasonal Allergies Seasonal Allergies: No (ISAÍAS APODACA MD) Past Medical History Surgeries: Yes (D AND C 2007) Gallbladder, Hysterectomy, Tonsillectomy Respiratory: No Cardiac: Yes Atrial Fibrillation Neurological: No Reproductive Disorders: Yes (DOTTIE III) Female Reproductive Disorders: Denies 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 Sexually Transmitted Disease: Yes (Chlamydia-Treated) HIV/AIDS: No Gastrointestinal: No Gall Bladder Disease Musculoskeletal: No Endocrine: No Loss of Vision: Denies Hearing Impairment: Denies Cancer: No Psychosocial: No Integumentary: No Blood Disorders: No Adverse Reaction/Blood Tranf: No (ISAÍAS APODACA MD) Family Medical History Reviewed Nursing Family Hx (ISAÍAS APODACA MD) Cardiovascular disease 19 FATHER Diabetes mellitus Grandparents (Maternal Grandmother) Fibrocystic disease of breast Grandparents (Maternal Grandmother) Hypertension Grandparents (Maternal Grandfather) Neoplasm Grandparents (Maternal Grandmother) No Pertinent Family Hx (ISAÍAS APODACA MD) Physical Exam Vital Signs Vital Signs - First Documented 01/25/21 17:00 Temp 36.3 Pulse 95 Resp 16 B/P (MAP) 121/90 (100) Pulse Ox 100 O2 Delivery Room Air (ANNMARIE FERNANDEZ APRN) Vital Signs Capillary Refill : Less Than 3 Seconds (ISAÍAS APODACA MD) Height/Weight/BMI Height: 5'8.00" Weight: 165lbs. 0.0oz. 74.994022pc; 26.00 BMI Method:Stated General Appearance: WD/WN, moderate distress HEENT: PERRL/EOMI, pharynx normal Neck: full range of motion, supple Respiratory: lungs clear, normal breath sounds Cardiovascular: regular rate, rhythm, no murmur Gastrointestinal: soft, tenderness (Left lower quadrant) Extremities: non-tender, normal inspection Back: normal inspection, no CVA tenderness, no vertebral tenderness Neurologic/Psychiatric: alert, oriented x 3 Skin: normal color, warm/dry (ISAÍAS APODACA MD) Focused Exam Lactate Level 01/25/21 18:13: Lactic Acid Level 3.57*H (ANNMARIE FERNANDEZ APRN) Lactic Acid Level Laboratory Tests Test 01/25/21 18:13 Lactic Acid Level 3.57 MMOL/L (0.50-2.00) *H (ANNMARIE FERNANDEZ APRN) Progress/Results/Core Measures Results/Orders Lab Results Laboratory Tests Test 01/25/21 17:10 01/25/21 17:50 01/25/21 18:13 Range/Units White Blood Count 6.7 4.3-11.0 10^3/uL Red Blood Count 4.56 3.80-5.11 10^6/uL Hemoglobin 13.6 11.5-16.0 g/dL Hematocrit 41 35-52 % Mean Corpuscular Volume 89 80-99 fL Mean Corpuscular Hemoglobin 30 25-34 pg Mean Corpuscular Hemoglobin Concent 33 32-36 g/dL Red Cell Distribution Width 12.5 10.0-14.5 % Platelet Count 221 130-400 10^3/uL Mean Platelet Volume 11.1 9.0-12.2 fL Immature Granulocyte % (Auto) 0 % Neutrophils (%) (Auto) 67 42-75 % Lymphocytes (%) (Auto) 25 12-44 % Monocytes (%) (Auto) 5 0-12 % Eosinophils (%) (Auto) 2 0-10 % Basophils (%) (Auto) 1 0-10 % Neutrophils # (Auto) 4.5 1.8-7.8 10^3/uL Lymphocytes # (Auto) 1.6 1.0-4.0 10^3/uL Monocytes # (Auto) 0.4 0.0-1.0 10^3/uL Eosinophils # (Auto) 0.1 0.0-0.3 10^3/uL Basophils # (Auto) 0.0 0.0-0.1 10^3/uL Immature Granulocyte # (Auto) 0.0 0.0-0.1 10^3/uL Sodium Level 139 138 135-145 MMOL/L Potassium Level 4.2 3.7 3.6-5.0 MMOL/L Chloride Level 58 L 105 98-107 MMOL/L Carbon Dioxide Level 19 L 21 21-32 MMOL/L Anion Gap 62 H 12 5-14 MMOL/L Blood Urea Nitrogen 10 10 7-18 MG/DL Creatinine 0.80 0.75 0.60-1.30 MG/DL Estimat Glomerular Filtration Rate 83 89 BUN/Creatinine Ratio 13 13 Glucose Level 81 86 70-105 MG/DL Calcium Level 8.3 L 8.9 8.5-10.1 MG/DL Corrected Calcium 8.3 L 8.9 8.5-10.1 MG/DL Total Bilirubin 0.3 0.4 0.1-1.0 MG/DL Aspartate Amino Transf (AST/SGOT) 18 16 5-34 U/L Alanine Aminotransferase (ALT/SGPT) 12 11 0-55 U/L Alkaline Phosphatase 43 43 40-136 U/L C-Reactive Protein High Sensitivity 0.21 0.00-0.50 MG/DL Total Protein 6.9 6.6 6.4-8.2 GM/DL Albumin 4.0 4.0 3.2-4.5 GM/DL Salicylates Level < 5.0 L 5.0-20.0 MG/DL Serum Alcohol < 10 <10 MG/DL Urine Color YELLOW Urine Clarity CLEAR Urine pH 7.0 5-9 Urine Specific [place] 1.020 1.016-1.022 Urine Protein NEGATIVE NEGATIVE Urine Glucose (UA) NEGATIVE NEGATIVE Urine Ketones 1+ H NEGATIVE Urine Nitrite NEGATIVE NEGATIVE Urine Bilirubin NEGATIVE NEGATIVE Urine Urobilinogen 0.2 < = 1.0 MG/DL Urine Leukocyte Esterase NEGATIVE NEGATIVE Urine RBC (Auto) NEGATIVE NEGATIVE Urine RBC NONE /HPF Urine WBC NONE /HPF Urine Squamous Epithelial Cells RARE /HPF Urine Crystals NONE /LPF Urine Bacteria NEGATIVE /HPF Urine Casts NONE /LPF Urine Mucus NEGATIVE /LPF Urine Culture Indicated NO Arterial Blood pH 7.34 *L 7.37-7.43 Lactic Acid Level 3.57 *H 0.50-2.00 MMOL/L (ANNMARIE FERNANDEZ APRN) My Orders Orders - ANNMARIE FERNANDEZ APRN Alcohol (01/25/21 18:06) Salicylate (01/25/21 18:06) Lactic Acid Analyzer (01/25/21 18:06) Abg Ph (01/25/21 18:06) Ct Abdomen/Pelvis W (01/25/21 18:07) Comprehensive Metabolic Panel (01/25/21 18:14) Iohexol Injection (Omnipaque 350 Mg/Ml 1 (01/25/21 18:30) Received Contrast (Hold Metformin- Contr (01/25/21 18:30) Ns (Ivpb) (Sodium Chloride 0.9% Ivpb Bag (01/25/21 18:30) Us Non Ob Pelvis Comp/Transvag (01/25/21 18:52) Rx-Tramadol Hcl (Rx-Ultram) (01/25/21 20:04) (ANNMARIE FERNANDEZ APRN) Medications Given in ED Current Medications Medications Dose Ordered Sig/Laisha Route Start Time Stop Time Status Last Admin Dose Admin Iohexol 100 ml ONCE ONCE IV 01/25/21 18:30 01/25/21 18:31 DC 01/25/21 18:30 95 ML Lactated Ringer's 1,000 ml @ 0 mls/hr Q0M ONCE IV 01/25/21 17:30 01/25/21 17:32 DC 01/25/21 17:51 1,000 MLS/HR Ondansetron HCl 4 mg ONCE ONCE IVP 01/25/21 17:30 01/25/21 17:32 DC 01/25/21 17:43 4 MG Sodium Chloride 100 ml ONCE ONCE IV 01/25/21 18:30 01/25/21 18:31 DC 01/25/21 18:30 80 ML (ANNMARIE FERNANDEZ APRN) Vital Signs/I&O 01/25/21 17:00 Temp 36.3 Pulse 95 Resp 16 B/P (MAP) 121/90 (100) Pulse Ox 100 O2 Delivery Room Air (ANNMARIE FERNANDEZ APRN) 2 Blood Pressure Mean: 100 Progress Progress Note : Progress Note Seen and evaluated. IV, labs, UA, LR 1 L bolus, fentanyl 50 mcg IV, Toradol 30 mg IV and Zofran 4 mg IV ordered. Anticipate CT scan pending UA results. Patient has history of hysterectomy but retains ovaries. Concerns for kidney stone versus ovarian cyst versus other abnormality. Monitor patient. (ISAÍAS APODACA MD) Departure Communication (Admissions) Family Conversation NAME: MAURICIO MORRIS Sadaf MED REC#: [id number] PT STATUS: REG ER : 1985 PHYSICIAN: ANNMARIE FERNANDEZ APRN ADMIT DATE: 01/25/21/ER Draft Date of Exam:01/25/21 US NON OB PELVIS COMP/TRANSVAG PROCEDURE: Pelvic complete, transabdominal and transvaginal sonogram. Limited pelvic doppler. TECHNIQUE: Multiple real-time grayscale images were obtained of the pelvis in various projections transabdominally and transvaginally. Limited pelvic duplex images were obtained. HISTORY: Pelvic pain. COMPARISON: None available. FINDINGS: Uterus is surgically absent. There is a 2.2 x 1.4 x 1.6 cm hemorrhagic cyst in the right ovary. There are follicles in the left ovary. The right ovary measures 3.6 x 2.2 x 2.2 cm and the left ovary measures 4.2 x 2.8 x 2.4 cm. Duplex images reveal normal arterial inflow to both ovaries. There is a small amount of free pelvic fluid. IMPRESSION: 1. Hemorrhagic cyst in the right ovary. There is normal blood flow to both ovaries and a physiologic amount of free fluid present. Dictated on workstation # [id number] Dict: 01/25/211952 Trans: 01/25/212001 [facility] [id number] Interpreted by: HILARIA MADDOX MD Electronically signed by: 1858-has a history of a partial hysterectomy. Left ovary has cystic structure. Will obtain ultrasound. Her pain is controlled at this time. Lactic acid is elevated but she states that she works out every day and pushed herself harder than usual today. (ANNMARIE FERNANDEZ APRN) Impression Primary Impression: Ruptured ovarian cyst Disposition: HOME, SELF-CARE Condition: Stable Departure-Patient Inst. Decision time for Depature: 20:03 (ANNMARIE FERNANDEZ APRN) Referrals: NO,LOCAL PHYSICIAN (PCP) Primary Care Physician BEN BARBA APRN (Family) Primary Care Physician Patient Instructions: Ovarian Cysts Add. Discharge Instructions: 1. Return to ER for any concerns take medication as directed follow-up with your doctor next week. All discharge instructions reviewed with patient and/or family. Voiced un derstanding. Work/School Note: Work Release Form Date Seen in the Emergency Department: Jan 25, 2021 Return to Work: Jan 27, 2021 ISAÍAS APODACA MD Jan 25, 2021 17:35 ANNMARIE FERNANDEZ APRN Jan 25, 2021 18:59
[2021-01-25 17:36] LABS: BASOPHILS % (AUTO) 1 % (0-10); EOSINOPHILS # (AUTO) 0.1 10^3/uL (0.0-0.3); EOSINOPHILS % (AUTO) 2 % (0-10); HEMATOCRIT 41 % (35-52); HEMOGLOBIN 13.6 g/dL (11.5-16.0); LYMPHOCYTES # (AUTO) 1.6 10^3/uL (1.0-4.0); LYMPHOCYTES % (AUTO) 25 % (12-44); MEAN CORPUSCULAR HEMOGLOBIN 30 pg (25-34); MEAN CORPUSCULAR HGB CONC 33 g/dL (32-36); MEAN CORPUSCULAR VOLUME 89 fL (80-99); MEAN PLATELET VOLUME 11.1 fL (9.0-12.2); MONOCYTES # (AUTO) 0.4 10^3/uL (0.0-1.0); MONOCYTES % (AUTO) 5 % (0-12); NEUTROPHILS # (AUTO) 4.5 10^3/uL (1.8-7.8); NEUTROPHILS % (AUTO) 67 % (42-75); PLATELET COUNT 221 10^3/uL (130-400); WHITE BLOOD COUNT 6.7 10^3/uL (4.3-11.0)
[2021-01-25 17:50] LABS: BILIRUBIN,TOTAL 0.3 MG/DL (0.1-1.0); CALCIUM 8.3 MG/DL (8.5-10.1); CREATININE SERUM 0.8 MG/DL (0.60-1.30); TOTAL PROTEIN 6.9 GM/DL (6.4-8.2)
[2021-01-25 17:57] LABS: BILIRUBIN,URINE NEGATIVE (NEGATIVE); CLARITY,URINE CLEAR; COLOR,URINE YELLOW; GLUCOSE, URINE (UA) NEGATIVE (NEGATIVE); KETONES,URINE 1+ (NEGATIVE); LEUKOCYTE ESTERASE ,URINE NEGATIVE (NEGATIVE); NITRITE,URINE NEGATIVE (NEGATIVE); PROTEIN,URINE NEGATIVE (NEGATIVE)
[2021-01-25 18:04] LABS: BACTERIA,URINE NEGATIVE /HPF; SQUAMOUS EPITHELIAL CELL,UR RARE /HPF
[2021-01-25 18:04] LABS: POTASSIUM 4.2 MMOL/L (3.6-5.0)
[2021-01-25 18:22] LABS: SALICYLATE < 5.0 MG/DL (5.0-20.0)
[2021-01-25] MEDS ORDERED: IOHEXOL 350 MG/ML 100 ML (OMNIPAQUE 350) VIAL IV ONE (18:30)
[2021-01-25] MEDS ORDERED: NS 100 ML (IVPB) BAG IV ONE (18:30)
[2021-01-25] MEDS ORDERED: HOLD METFORMIN - RECEIVED CONTRAST 20 ML VIAL IV SCH (18:30)
[2021-01-25 18:45] LABS: BILIRUBIN,TOTAL 0.4 MG/DL (0.1-1.0); CALCIUM 8.9 MG/DL (8.5-10.1); CREATININE SERUM 0.75 MG/DL (0.60-1.30); POTASSIUM 3.7 MMOL/L (3.6-5.0); TOTAL PROTEIN 6.6 GM/DL (6.4-8.2)
--- NOTE | 2021-01-25 18:45 | Diagnostic Imaging Report ---
EXAMINATION: CT abdomen and pelvis with intravenous contrast. TECHNIQUE: Multiple contiguous axial images were obtained through the abdomen and pelvis after the uneventful administration of intravenous contrast. All CT scans use one or more of the following dose optimizing techniques: automated exposure control, MA and/or KvP adjustment based on patient size and exam type or iterative reconstruction. HISTORY: Left lower quadrant pain. COMPARISON: 07/13/2009. FINDINGS: The heart is unremarkable. The included lung bases are clear. The liver, spleen, pancreas, adrenal glands, and kidneys have a normal appearance. There is no pathologically enlarged mesenteric or retroperitoneal adenopathy. The bowel loops are nondilated. The appendix is not well seen. There is no free fluid or free air. No acute osseous abnormalities. An ossified body is seen in the left hip joint which is similar to the prior exam. The urinary bladder is decompressed. A dominant follicle/cyst is seen in the right adnexa measuring 2.0 cm. A lobular collection is seen in the left aspect of the pelvis measuring 3.6 x 2.1 cm. The uterus is surgically absent. There is no free air, loculated collection, or adenopathy in the pelvis. IMPRESSION: 1. The appendix is not visualized although no secondary signs of acute appendicitis are seen. No bowel obstruction, free fluid, or free air. 2. Nonspecific lobular focus is seen in the pelvis left of midline, which may represent a follicle/cyst versus lymphocele. A dominant follicle/cyst is seen in the right ovary. The uterus is surgically absent. Consider pelvic ultrasound to further evaluate. 3. Ossified body in the left hip joint, similar to the prior exam. Dictated by: Dictated on workstation # [id number]
[2021-01-25] MEDS ORDERED: NS IV 1000 ML 1,000 ML IV ONE (19:45)
[2021-01-25] MEDS ORDERED: diphenhydrAMINE 50 MG/ML INJ (BENADRYL) IVP ONE (19:45)
[2021-01-25] MEDS ORDERED: HALOPERIDOL 5 MG/ML (HALDOL) VIAL IM ONE (19:45)
--- NOTE | 2021-01-25 20:03 | Diagnostic Imaging Report ---
PROCEDURE: Pelvic complete, transabdominal and transvaginal sonogram. Limited pelvic doppler. TECHNIQUE: Multiple real-time grayscale images were obtained of the pelvis in various projections transabdominally and transvaginally. Limited pelvic duplex images were obtained. HISTORY: Pelvic pain. COMPARISON: None available. FINDINGS: Uterus is surgically absent. There is a 2.2 x 1.4 x 1.6 cm hemorrhagic cyst in the right ovary. There are follicles in the left ovary. The right ovary measures 3.6 x 2.2 x 2.2 cm and the left ovary measures 4.2 x 2.8 x 2.4 cm. Duplex images reveal normal arterial inflow to both ovaries. There is a small amount of free pelvic fluid. IMPRESSION: 1. Hemorrhagic cyst in the right ovary. There is normal blood flow to both ovaries and a physiologic amount of free fluid present. Dictated by: Dictated on workstation # [id number]
[2021-01-25] MEDS ORDERED: RX-OXYCODONE/APAP 5-325 MG #4 TAB PK PO PRN (20:15)
[2021-01-25] MEDS ORDERED: fentaNYL INJ 100 MCG/2 ML AMP IVP ONE (20:15)
[2021-01-25 20:37] VITALS: BP 123/88
[2021-01-25] MEDS ORDERED: RX-ONDANSETRON 4 MG ODT (ZOFRAN) PPK #4 PO STA (20:42)
[2021-01-25] MEDS ORDERED: RX-ONDANSETRON 4 MG ODT (ZOFRAN) PPK #4 ONE (20:44)
== END 2021-01-25 20:37 | disposition home or self-care (01) ==
LOC: EDUNIT# 16:58 → ER 17:00
DX: N83.201 Unspecified ovarian cyst, right side (principal); Z90.710 Acquired absence of both cervix and uterus
CPT/HCPCS: 74177; 76830; 76856; 80053; 81000; 82800; 83605; 85025; 86141; 99284; G0480 ×2; 36415; 80320; 80329

== ENCOUNTER 2022-04-26 08:01 | Emergency (ER) | payer SELFPAY ==
[~2022-04-26] VITALS: Ht 170 cm; Wt 77.0 kg
[~2022-04-26 08:01] MED LIST changes: +CYCL10TA25 PO
[2022-04-26] MEDS ORDERED: KETOROLAC 30 MG/ML VIAL IVP STA (08:16)
[2022-04-26] MEDS ORDERED: fentaNYL INJ 100 MCG/2 ML AMP IVP STA (08:16)
[2022-04-26] MEDS ORDERED: NS IV 1000 ML 1,000 ML IV STA (08:16)
[2022-04-26 08:28] LABS: BASOPHILS % (AUTO) 0 % (0-10); EOSINOPHILS # (AUTO) 0.2 10^3/uL (0.0-0.3); EOSINOPHILS % (AUTO) 3 % (0-10); HEMATOCRIT 41 % (35-52); HEMOGLOBIN 14.3 g/dL (11.5-16.0); LYMPHOCYTES # (AUTO) 1.4 10^3/uL (1.0-4.0); LYMPHOCYTES % (AUTO) 20 % (12-44); MEAN CORPUSCULAR HEMOGLOBIN 30 pg (25-34); MEAN CORPUSCULAR HGB CONC 35 g/dL (32-36); MEAN CORPUSCULAR VOLUME 88 fL (80-99); MEAN PLATELET VOLUME 10.1 fL (9.0-12.2); MONOCYTES # (AUTO) 0.3 10^3/uL (0.0-1.0); MONOCYTES % (AUTO) 5 % (0-12); NEUTROPHILS % (AUTO) 72 % (42-75); PLATELET COUNT 216 10^3/uL (130-400); WHITE BLOOD COUNT 7.1 10^3/uL (4.3-11.0)
[2022-04-26] MEDS ORDERED: ONDANSETRON 4 MG/2 ML (SDV) Z0FRAN IVP ONE (08:30)
--- NOTE | 2022-04-26 08:31 | ED Abdominal Pain ---
General Chief Complaint: Abdominal/GI Problems Stated Complaint: ABD PAIN Nursing Triage Note: PT AMB TO RM 5 PT CO OF ABD PAIN SEVERE ON L LOWER ABD RATES 11/03. HAVE HAD N/V THIS AM. STATES HAS HAD THIS APPROX 6 MO AGO Source of Information: Patient Exam Limitations: No Limitations History of Present Illness Date Seen by Provider: Apr 26, 2022 Time Seen by Provider: 08:09 Initial Comments Here with report of significant left lower quadrant abdominal pain as well as nausea and vomiting. Onset a few hours ago this morning. Patient states that she believes it is her ovarian cyst as she had one 6 months ago. Patient denies vaginal bleeding or discharge. She has had hysterectomy without oophorectomy. Denies blood in the urine or stool. States its better when sitting in a crouched position with slight pressure against the left lower abdomen. Denies any injury. Denies illness otherwise including fever or chills. She has had nausea and vomiting due to the pain. Timing/Duration: 4-6 Hours Severity/Quality: Moderate, Severe Location: LLQ Radiation: No Radiation Activities at Onset: None Modifying Factors: Worsens With Movement, Worsens With Palpation Associated Symptoms: No Back Pain, No Fever/Chills; Nausea/Vomiting; No Shortness of Air, No Weakness Allergies and Home Medications Allergies Coded Allergies: codeine (Unverified Allergy, Unknown, NAUSEA, 09/22/13) hydrocodone (Unverified Adverse Reaction, Intermediate, vomiting, 09/22/13) Patient Home Medication List Home Medication List Reviewed: Yes Review of Systems Review of Systems Constitutional: No chills, No fever Respiratory: Denies Cough, Denies Shortness of Air Gastrointestinal: Abdominal Pain; Denies Constipated, Denies Diarrhea; Nausea, Vomiting Genitourinary: Denies Burning, Denies Discharge, Denies Hematuria Musculoskeletal: No back pain Psychiatric/Neurological: No Symptoms Reported Past Qsnagpe-Wkwqwc-Qehefc Hx Patient Social History Tobacco Use?: No Substance use?: No Alcohol Use?: No Immunizations Up To Date Tetanus Booster (TDap): Less than 5yrs Seasonal Allergies Seasonal Allergies: No Past Medical History Surgery/Hospitalization HX: PARTIAL HYST, GB, T AND A Surgeries: Yes (D AND C 2007) Gallbladder, Hysterectomy, Tonsillectomy Respiratory: No Cardiac: Yes Atrial Fibrillation Neurological: No Reproductive Disorders: Yes (DOTTIE III) Female Reproductive Disorders: Denies 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 Sexually Transmitted Disease: Yes (Chlamydia-Treated) HIV/AIDS: No Gastrointestinal: No Gall Bladder Disease Musculoskeletal: No Endocrine: No Loss of Vision: Denies Hearing Impairment: Denies Cancer: No Psychosocial: No Integumentary: No Blood Disorders: No Adverse Reaction/Blood Tranf: No Family Medical History Reviewed Nursing Family Hx Cardiovascular disease 19 FATHER Diabetes mellitus Grandparents (Maternal Grandmother) Fibrocystic disease of breast Grandparents (Maternal Grandmother) Hypertension Grandparents (Maternal Grandfather) Neoplasm Grandparents (Maternal Grandmother) No Pertinent Family Hx Physical Exam Vital Signs Vital Signs - First Documented 04/26/22 08:05 Temp 36.4 Pulse 80 Resp 18 B/P (MAP) 127/84 (98) Capillary Refill : Less Than 3 Seconds Height/Weight/BMI Height: 5'8.00" Weight: 165lbs. 0.0oz. 74.214492un; 26.00 BMI Method:Stated General Appearance: WD/WN, mild distress Respiratory: lungs clear, normal breath sounds Cardiovascular: regular rate, rhythm, no murmur Gastrointestinal: normal bowel sounds, soft; No guarding, No rebound; tenderness (Left lower quadrant) Extremities: non-tender, normal inspection Back: normal inspection, no CVA tenderness, no vertebral tenderness Neurologic/Psychiatric: alert, oriented x 3 Skin: normal color, warm/dry Progress/Results/Core Measures Results/Orders Lab Results Laboratory Tests Test 04/26/22 08:14 04/26/22 08:57 Range/Units White Blood Count 7.1 4.3-11.0 10^3/uL Red Blood Count 4.72 3.80-5.11 10^6/uL Hemoglobin 14.3 11.5-16.0 g/dL Hematocrit 41 35-52 % Mean Corpuscular Volume 88 80-99 fL Mean Corpuscular Hemoglobin 30 25-34 pg Mean Corpuscular Hemoglobin Concent 35 32-36 g/dL Red Cell Distribution Width 12.3 10.0-14.5 % Platelet Count 216 130-400 10^3/uL Mean Platelet Volume 10.1 9.0-12.2 fL Immature Granulocyte % (Auto) 0 % Neutrophils (%) (Auto) 72 42-75 % Lymphocytes (%) (Auto) 20 12-44 % Monocytes (%) (Auto) 5 0-12 % Eosinophils (%) (Auto) 3 0-10 % Basophils (%) (Auto) 0 0-10 % Neutrophils # (Auto) 5.0 1.8-7.8 10^3/uL Lymphocytes # (Auto) 1.4 1.0-4.0 10^3/uL Monocytes # (Auto) 0.3 0.0-1.0 10^3/uL Eosinophils # (Auto) 0.2 0.0-0.3 10^3/uL Basophils # (Auto) 0.0 0.0-0.1 10^3/uL Immature Granulocyte # (Auto) 0.0 0.0-0.1 10^3/uL Sodium Level 140 135-145 MMOL/L Potassium Level 3.8 3.6-5.0 MMOL/L Chloride Level 105 98-107 MMOL/L Carbon Dioxide Level 23 21-32 MMOL/L Anion Gap 12 5-14 MMOL/L Blood Urea Nitrogen 12 7-18 MG/DL Creatinine 0.86 0.60-1.30 MG/DL Estimat Glomerular Filtration Rate 90 BUN/Creatinine Ratio 14 Glucose Level 91 70-105 MG/DL Calcium Level 9.3 8.5-10.1 MG/DL Corrected Calcium 9.1 8.5-10.1 MG/DL Total Bilirubin 0.4 0.1-1.0 MG/DL Aspartate Amino Transf (AST/SGOT) 12 5-34 U/L Alanine Aminotransferase (ALT/SGPT) 13 0-55 U/L Alkaline Phosphatase 50 40-136 U/L C-Reactive Protein High Sensitivity 0.47 0.00-0.50 MG/DL Total Protein 7.3 6.4-8.2 GM/DL Albumin 4.3 3.2-4.5 GM/DL Urine Color YELLOW Urine Clarity CLEAR Urine pH 7.0 5-9 Urine Specific [place] 1.020 1.016-1.022 Urine Protein NEGATIVE NEGATIVE Urine Glucose (UA) NEGATIVE NEGATIVE Urine Ketones NEGATIVE NEGATIVE Urine Nitrite NEGATIVE NEGATIVE Urine Bilirubin NEGATIVE NEGATIVE Urine Urobilinogen 0.2 < = 1.0 MG/DL Urine Leukocyte Esterase NEGATIVE NEGATIVE Urine RBC (Auto) NEGATIVE NEGATIVE Urine RBC NONE /HPF Urine WBC NONE /HPF Urine Squamous Epithelial Cells 0-2 /HPF Urine Crystals NONE /LPF Urine Bacteria NEGATIVE /HPF Urine Casts NONE /LPF Urine Mucus NEGATIVE /LPF Urine Culture Indicated NO My Orders Orders - ISAÍAS APODACA MD Cbc With Automated Diff (04/26/22 08:16) Comprehensive Metabolic Panel (04/26/22 08:16) Hs C Reactive Protein (04/26/22 08:16) Ua Culture If Indicated (04/26/22 08:16) Ondansetron Injection (Zofran Injectio (04/26/22 08:30) Ns Iv 1000 Ml (Sodium Chloride 0.9%) (04/26/22 08:16) Ed Iv/Invasive Line Start (04/26/22 08:16) Fentanyl Inj (Sublimaze Injection) (04/26/22 08:16) Ketorolac Injection (Toradol Injection) (04/26/22 08:16) Ct Abdomen/Pelvis W (04/26/22 08:46) Iohexol Injection (Omnipaque 350 Mg/Ml 1 (04/26/22 09:00) Received Contrast (Hold Metformin- Contr (04/26/22 09:00) Ns (Ivpb) (Sodium Chloride 0.9% Ivpb Bag (04/26/22 09:00) Medications Given in ED Current Medications Medications Dose Ordered Sig/Laisha Route Start Time Stop Time Status Last Admin Dose Admin Iohexol 100 ml ONCE ONCE IV 04/26/22 09:00 04/26/22 09:01 DC 04/26/22 09:09 80 ML Ondansetron HCl 4 mg ONCE ONCE IVP 04/26/22 08:30 04/26/22 08:31 DC 04/26/22 08:21 4 MG Sodium Chloride 100 ml ONCE ONCE IV 04/26/22 09:00 04/26/22 09:01 DC 04/26/22 09:09 80 ML Vital Signs/I&O 04/26/22 08:05 Temp 36.4 Pulse 80 Resp 18 B/P (MAP) 127/84 (98) Blood Pressure Mean: 98 Progress Progress Note : Progress Note Seen and evaluated. Due to significant pain, we will go ahead and establish IV. Labs including CBC, CMP and CRP ordered. We will check UA. Patient has had hysterectomy so is not a concern. I did review previous history and found that in January 2021, she had question of right hemorrhagic cyst and this was her last visit. Normal saline 1 L bolus, Zofran 4 mg IV, fentanyl 50 mcg IV and Toradol 30 mg IV ordered for pain. I do anticipate that we will get CT abdomen pelvis to rule out intra-abdominal pathology. We will try to get her pain controlled better first. Monitor patient. Differential diagnosis includes hemorrhagic or ruptured ovarian cyst, diverticulitis, ureteral stone, UTI 0926: Labs complete and CBC has normal white count and normal hemoglobin without significant left shift. CMP shows normal electrolytes, normal creatinine and normal LFTs. CRP is normal. UA is pending. I have reviewed the CT scan. Read is pending. I do not see any obvious significant free fluid or extraperitoneal blood. There is concern for left ovarian cystic structure on my interpretation. Pending radiology read. Monitor patient. 35: CT results reviewed. There is concerns for hemorrhagic cyst by radiology interpretation. Overall she is doing much better. UA does not show any significant abnormality and is normal overall. I do believe she is safe for discharge home and she agrees. 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 Return precautions discussed. OTC medications discussed. Patient was offered but declined prescription for pain medicine and will instead use Tylenol/acetaminophen and/or ibuprofen which is reasonable. Discharged home with return precautions. Patient verbalized understanding instructions and agreement with plan. Departure Impression Primary Impression: Hemorrhagic cyst of left ovary Disposition: HOME, SELF-CARE Condition: Improved Departure-Patient Inst. Decision time for Depature: 09:36 Referrals: [facility] [place] (PCP) Primary Care Physician BEN BARBA APRN (Family) Primary Care Physician Patient Instructions: Ovarian Cyst ED Add. Discharge Instructions: All discharge instructions reviewed with patient and/or family. Voiced understanding. You may take ibuprofen 600 mg every 8 hours as needed for pain. You may also take Tylenol/acetaminophen 1000 mg every 8 hours as needed for pain. You may use warm, moist heat to area of concern and as needed to reduce pain. Follow-up with your wallpaper inspector and shipper for recheck and further evaluation to discuss ovarian cyst. Return for worse pain, weakness, dizziness, vomiting or other concerns as needed. ISAÍAS APODACA MD Apr 26, 2022 08:31
[2022-04-26 08:33] LABS: ALBUMIN 4.3 GM/DL (3.2-4.5); POTASSIUM 3.8 MMOL/L (3.6-5.0)
[2022-04-26 08:34] LABS: CALCIUM 9.3 MG/DL (8.5-10.1)
[2022-04-26 08:36] LABS: TOTAL PROTEIN 7.3 GM/DL (6.4-8.2)
[2022-04-26 08:37] LABS: BILIRUBIN,TOTAL 0.4 MG/DL (0.1-1.0)
[2022-04-26 08:39] LABS: CREATININE SERUM 0.86 MG/DL (0.60-1.30)
[2022-04-26] MEDS ORDERED: NS 100 ML (IVPB) BAG IV ONE (09:00)
[2022-04-26] MEDS ORDERED: HOLD METFORMIN - RECEIVED CONTRAST 20 ML VIAL IV SCH (09:00)
[2022-04-26] MEDS ORDERED: IOHEXOL 350 MG/ML 100 ML (OMNIPAQUE 350) VIAL IV ONE (09:00)
[2022-04-26 09:05] LABS: BILIRUBIN,URINE NEGATIVE (NEGATIVE); CLARITY,URINE CLEAR; COLOR,URINE YELLOW; GLUCOSE, URINE (UA) NEGATIVE (NEGATIVE); KETONES,URINE NEGATIVE (NEGATIVE); LEUKOCYTE ESTERASE ,URINE NEGATIVE (NEGATIVE); NITRITE,URINE NEGATIVE (NEGATIVE); PROTEIN,URINE NEGATIVE (NEGATIVE)
--- NOTE | 2022-04-26 09:27 | Diagnostic Imaging Report ---
CT ABDOMEN/PELVIS W TECHNIQUE: Multiple contiguous axial images were obtained through the abdomen and pelvis after administration of intravenous contrast. All CT scans use one or more of the following dose optimizing techniques: automated exposure control, MA and/or KvP adjustment based on patient size and exam type or iterative reconstruction. INDICATION: Left lower quadrant abdominal pain. COMPARISON: CT abdomen and pelvis of 01/25/2021. FINDINGS: Lower chest: The lung bases are clear. No pericardial or pleural effusion. Peritoneum: A small amount of free pelvic fluid is present. No free intraperitoneal air. Liver and biliary system: The liver is normal. Gallbladder is likely surgically absent. No biliary duct dilatation. Spleen and Pancreas: Spleen is normal. The pancreas enhances normally without mass lesion or peripancreatic inflammatory changes. Adrenals: Normal. tract: The kidneys enhance normally without suspicious mass or obstruction. Urinary bladder is distended without wall thickening. No renal or ureteral stones. Left ovary measures approximately 4.8 x 2.6 cm. There are 2 rim-enhancing cysts within the left ovary, largest measuring 2 cm. Hysterectomy. GI tract: Stomach is partially filled with fluid and there is no wall thickening. No bowel obstruction. No pericolonic inflammatory changes. Appendix is not seen but there are no secondary features of acute appendicitis. Vasculature and Lymph nodes: Normal caliber aorta. No abdominal or pelvic lymphadenopathy. Musculoskeletal: No concerning osseous lesion. Stable 2 x 1 cm piece of heterotopic ossification along the inferior aspect the left hip capsule. IMPRESSION: 1. There are 2 hyperdense cysts within left ovary that could represent hemorrhagic cyst and be the source of patient's left lower quadrant pain. 2. No diverticulitis, obstruction or other acute process to account for patient's left lower quadrant pain. Dictated by: Dictated on workstation # [id number]
[2022-04-26 09:36] LABS: BACTERIA,URINE NEGATIVE /HPF; SQUAMOUS EPITHELIAL CELL,UR 0-2 /HPF
[2022-04-26 09:43] VITALS: BP 118/72
== END 2022-04-26 09:43 | disposition home or self-care (01) ==
LOC: EDUNIT# 08:01 → ER 08:02
DX: N83.202 Unspecified ovarian cyst, left side (principal); Z88.5 Allergy status to narcotic agent
CPT/HCPCS: 36415; 74177; 80053; 81000; 85025; 86141